=== PATIENT | male | born 1930 | race Caucasian/White ===

== ENCOUNTER 2017-03-21 13:29 | Emergency (ER) | payer MEDICARE, OTHER ==
[2017-03-21 14:58] LABS: CHLORIDE,CL 103 mmol/L (98-107); SODIUM,NA 139 mmol/L (136-145)
[2017-03-21] MEDS ORDERED: cefTRIAXone 1 GM Vial IM ONE (15:31)
--- NOTE | 2017-03-21 15:37 | EDM.PDOC ---
ED HPI GENERAL MEDICAL PROBLEM - General Chief Complaint: General Stated Complaint: htn Time Seen by Provider: 03/21/17 13:44 Source of Information: Reports: Family, Other (Assisted living facility) History Limitations: Reports: Altered Mental Status (dementia) - History of Present Illness INITIAL COMMENTS - FREE TEXT/NARRATIVE: Patient sent here from the [facility] after they noticed him shaking more. When they took his vital signs his pulse was 137, O2 sats reportedly in high 70s on room air, and systolic BP elevated to 190. EMS called to bring patient to ER for evaluation. EMS notes overall normal vital signs, including BP and O2 sats once patient in ambulance. Patient was without complaint when asked. He continued to have stable vital signs once in the ER. Son came to ER. Stated that he spend part of morning with the patient and also walked around the [facility] with him without incident. He feels that his father is acting normally. No reported signs of illness or problems per son. Vesicare added to medication regimen around March 10. Otherwise no recent med changes. - Related Data Allergies Allergy/AdvReac Type Severity Reaction Status Date / Time No Known Allergies Allergy Verified 03/21/17 13:30 Home Meds: Home Meds Donepezil HCl [Aricept] 10 mg PO DAILY 03/21/17 [History] Doxycycline [Vibramycin] 100 mg PO Q12HR #20 cap 03/21/17 [Rx] Levothyroxine [Synthroid] 88 mcg PO ACBREAKFAST 03/21/17 [History] Meclizine [Antivert] 12.5 mg PO DAILY 03/21/17 [History] Omeprazole 20 mg PO DAILY 03/21/17 [History] Solifenacin [Vesicare] 5 mg PO DAILY 03/21/17 [History] Past Medical History Gastrointestinal History: Reports: GERD Neurological History: Reports: Alzheimers Disease Endocrine/Metabolic History: Reports: Hypothyroidism Social & Family History - Tobacco Use Smoking Status *Q: Never Smoker Second Hand Smoke Exposure: No - Caffeine Use Caffeine Use: Reports: None - Recreational Drug Use Recreational Drug Use: No ED ROS GENERAL - Review of Systems Review Of Systems: Unable To Obtain ED EXAM, GENERAL - Physical Exam Exam: See Below Exam Limited By: Altered Mental Status (has hard time following directions at times.) General Appearance: Alert, WD/WN, No Apparent Distress Eye Exam: Bilateral Eye: EOMI, PERRL Ears: Normal External Exam, Normal Canal Nose: Normal Inspection. No: Nasal Swelling, Nasal Drainage Throat/Mouth: Normal Inspection, Normal Lips, Normal Voice, No Airway Compromise Head: Atraumatic, Normocephalic Neck: Normal Inspection, Supple, Non-Tender, Full Range of Motion. No: Lymphadenopathy (L), Lymphadenopathy (R) Respiratory/Chest: No Respiratory Distress, Lungs Clear, Normal Breath Sounds, No Accessory Muscle Use, Chest Non-Tender, Other (poor inspiratory effort when requested to take deep breath) Cardiovascular: Normal Peripheral Pulses, Regular Rate, Rhythm, No Edema, No Murmur Peripheral Pulses: 2+: Radial (L), Radial (R) GI/Abdominal: Normal Bowel Sounds, Soft, Non-Tender, No Distention (Male) Exam: Deferred Rectal (Males) Exam: Deferred Back Exam: Normal Inspection Extremities: Normal Inspection, Normal Range of Motion, Non-Tender, No Pedal Edema, Normal Capillary Refill Neurological: Alert, Other (no gross neuro deficits noted, equal strength bilaterally. Confused, mildly agitated at times, usually cooperative. ) Psychiatric: Normal Affect, Normal Mood Skin Exam: Warm, Dry, Normal Color EKG INTERPRETATION EKG Date: 03/21/17 Time: 13:39 Rhythm: Other (Sinus rhythm) Rate (Beats/Min): 75 [place]: Normal P-Wave: Present QRS: Normal ST-T: Normal QT: Normal Comparison: NA - No Prior EKG EKG Interpretation Comments: 1st degree AV block Course - Vital Signs Last Recorded V/S: Last Vital Signs Temp 37.2 C 03/21/17 15:28 Pulse 90 03/21/17 15:28 Resp 18 03/21/17 15:28 BP 128/89 03/21/17 15:28 Pulse Ox 99 03/21/17 15:28 - Orders/Labs/Meds Orders: Active Orders 24 hr Category Date Time Status EKG Documentation Completion [RC] ASDIRECTED Care 03/21/17 15:59 Ordered Chest 2V [CR] Stat Exams 03/21/17 14:58 Ordered EKG 12 Lead [EK] Stat Ther 03/21/17 15:58 Ordered Labs: Laboratory Tests 03/21/17 03/21/17 03/21/17 Range/Units 14:30 14:30 15:05 WBC 28.0 H (4.0-10.2) K/uL RBC 4.24 L (4.33-5.41) M/uL Hgb 12.8 L (13.1-16.8) g/dL Hct 38.0 L (39.0-49.0) % MCV 89.6 (84.0-98.0) fL MCH 30.2 (28.2-33.3) pg MCHC 33.7 (31.7-36.0) g/dL RDW 17.1 H (11.2-14.1) % Plt Count 435 H (150-350) K/uL Add Manual Diff Yes Neutrophils % (Manual) 81 Band Neutrophils % 4 Lymphocytes % (Manual) 9 Monocytes % (Manual) 1 Eosinophils % (Manual) 5 Absolute Neutrophils 23.8000 Lymphocytes # (Manual) 2.5200 Monocytes # (Manual) 0.2800 Eosinophils # (Manual) 1.4000 Sodium 139 (136-145) mmol/L Potassium 4.1 (3.5-5.1) mmol/L Chloride 103 (98-107) mmol/L Carbon Dioxide 26.0 (21.0-32.0) mmol/L BUN 21 H (7-18) mg/dL Creatinine 0.93 (0.51-1.17) mg/dL Est Cr Clr Drug Dosing 47.42 mL/min Estimated GFR (MDRD) > 60 mL/min Glucose 110 H (74-106) mg/dL Calcium 8.8 (8.5-10.1) mg/dL Total Bilirubin 0.9 (0.2-1.0) mg/dL AST 17 (15-37) U/L ALT 18 (12-78) U/L Alkaline Phosphatase 70 (46-116) IU/L Creatine Kinase 45 (26-308) U/L Creatine Kinase Index 0.4 (0.0-2.5) % CK-MB (CK-2) 0.20 (0.00-3.60) ng/mL Troponin I 0.000 (0.000-0.056) ng/mL Total Protein 7.4 (6.4-8.2) g/dL Albumin 4.3 (3.4-5.0) g/dL Specimen Type Urinblad Urine Color Yellow Urine Appearance Clear Urine pH 5.5 (5.0-9.0) Ur Specific [place] 1.025 (1.005-1.030) Urine Protein Negative (NEGATIVE) mg/dL Urine Glucose (UA) Negative (NEGATIVE) mg/dL Urine Ketones Negative (NEGATIVE) mg/dL Urine Occult Blood Negative (NEGATIVE) Urine Nitrite Negative (NEGATIVE) Urine Bilirubin Negative (NEGATIVE) Urine Urobilinogen 0.2 (0.2-1.0) E.U./dL Ur Leukocyte Esterase Negative (NEGATIVE) Urine RBC 0-5 /HPF Urine WBC 0-5 /HPF Ur Epithelial Cells Few /LPF Urine Bacteria Few (NONE TO FEW) /HPF Urine Mucus Few H (NEGATIVE) /LPF Meds: Medications Discontinued Medications Generic Name Dose Route Start Last Admin Trade Name Freq PRN Reason Stop Dose Admin Ceftriaxone Sodium 1 gm 03/21/17 15:31 03/21/17 15:43 Rocephin IM 03/21/17 15:32 1 gm ONETIME ONE Administration Lidocaine HCl Confirm 03/21/17 15:36 03/21/17 15:44 Xylocaine-Mpf 1% Administered 03/21/17 15:37 Not Given Dose 5 ml .ROUTE .STK-MED ONE Lidocaine HCl 5 ml 03/21/17 15:42 03/21/17 15:44 Xylocaine-Mpf 1% INJECT 03/21/17 15:43 5 ml ONETIME ONE Administration - Radiology Interpretation Free Text/Narrative:: Patient appears to have area suspicious for infiltrate right lower lung. - Re-Assessments/Exams Free Text/Narrative Re-Assessment/Exam: Patient denies feeling ill. Son notes that patient is a bit more agitated than usual while in ER. WBC noted to be 28,000 No fevers. Non-focal exam. UA normal. Vital signs remained stable. Chest xray did reveal an area suspicious for infiltrate right lower lung. Uncertain if this is linked to elevated WBC. Will treat patient with course of Doxy for 10 days. He will be staying with his son for the next day or two. Numerous precautions reviewed with son prior to patient's discharge. Rocephin 1gm IM also given. Recommend repeat CBC within one week and follow up with primary provider at that time for recheck. Departure - Departure Time of Disposition: 16:00 Disposition: Home, Self-Care 01 Condition: Good Clinical Impression: Pneumonia Qualifiers: Pneumonia type: due to unspecified organism Laterality: right Lung location: lower lobe of lung Qualified Code(s): J18.1 - Lobar pneumonia, unspecified organism - Discharge Information Prescriptions: Doxycycline [Vibramycin] 100 mg PO Q12HR #20 cap Referrals: Mallorie Venegas MD [Primary Care Provider] - Forms: ED Department Discharge Additional Instructions: Watch for any additional problems or worsening. Follow up as needed in ER or clinic. Recommend recheck with primary provider in one week including repeat CBC lab work. - My Orders Last 24 Hours: My Active Orders 03/21/17 14:58 Chest 2V [CR] Stat 03/21/17 15:58 EKG 12 Lead [EK] Stat 03/21/17 15:59 EKG Documentation Completion [RC] ASDIRECTED - Assessment/Plan Last 24 Hours: My Active Orders 03/21/17 14:58 Chest 2V [CR] Stat 03/21/17 15:58 EKG 12 Lead [EK] Stat 03/21/17 15:59 EKG Documentation Completion [RC] ASDIRECTED
[2017-03-21 18:45] VITALS: BP 137/56
== END 2017-03-21 16:37 | disposition home or self-care (01) ==
LOC: LL.ED 13:29
DX: J18.9 Pneumonia, unspecified organism (principal); K21.9 Gastro-esophageal reflux disease without esophagitis; E03.9 Hypothyroidism, unspecified; G30.9 Alzheimer's disease, unspecified; F02.80 Dementia in other diseases classified elsewhere, unspecified severity, without behavioral disturbance, psychotic disturbance, mood disturbance, and anxiety; Z79.899 Other long term (current) drug therapy
CPT/HCPCS: 36415; 71020; 80053; 81001; 82550; 82553; 84484; 85025; 93005; 96372; 99285; J0696; 99284

== ENCOUNTER 2017-03-29 16:09 | Inpatient (IN) | payer MEDICARE, OTHER ==
[2017-03-29] MEDS ORDERED: Albuterol/Ipratropium 3.0-0.5 MG/3 ML Neb Soln NEB PRN (16:39)
[2017-03-29] MEDS ORDERED: Acetaminophen 325 MG Tab PO PRN (16:39)
[2017-03-29] MEDS ORDERED: Sodium Chloride 0.9% 10 ML Syringe FLUSH PRN (16:39)
--- NOTE | 2017-03-29 16:59 | PCM.HP ---
H&P History of Present Illness - General Date of Service: 03/29/17 Admit Problem/Dx: Admission Diagnosis/Problem Admission Diagnosis/Problem Pneumonia Source of Information: EMS Notes Reviewed, Family History Limitations: Reports: Altered Mental Status - History of Present Illness Initial Comments - Free Text/Narative: Patient is brought in by his son for further evaluation of his current health. The patient was seen in the ER last week and diagnosed with pneumonia, WBC was elevated. Patient was started on doxy oral and seen in the clinic with improvement of his health and WBC was trending down. Yesterday the staff at the [facility] noticed the patient to more lethargic and patient had an emesis last night. Patient does have Alzheimer's , however he walks alot at the [facility] and doesn't have behavior issues. Patient has also been incontinent of urine more. Before the patient was hospitalized, family was looking into moving [place] to a skilled facility. Patient has had a slight cough, has not been running a fever. Improves with: Reports: Medication Worsens with: Reports: Immobilization Associated Symptoms: Reports: Confusion, Loss of Appetite - Related Data Allergies/Adverse Reactions: Allergies Allergy/AdvReac Type Severity Reaction Status Date / Time No Known Allergies Allergy Verified 03/21/17 13:30 Home Medications: Home Meds Donepezil HCl [Aricept] 10 mg PO DAILY 03/21/17 [History] Levothyroxine [Synthroid] 88 mcg PO ACBREAKFAST 03/21/17 [History] Meclizine [Antivert] 12.5 mg PO DAILY 03/21/17 [History] Omeprazole 20 mg PO DAILY 03/21/17 [History] Solifenacin [Vesicare] 5 mg PO DAILY 03/21/17 [History] Doxycycline [Vibramycin] 100 mg PO BID 03/29/17 [History] Past Medical History Gastrointestinal History: Reports: GERD Genitourinary History: Reports: Urinary Incontinence Neurological History: Reports: Alzheimers Disease Psychiatric History: Reports: Alzheimers Disease Endocrine/Metabolic History: Reports: Hypothyroidism Social & Family History - Family History Other Cardiac Family History: parents with heart disease - Tobacco Use Smoking Status *Q: Never Smoker Second Hand Smoke Exposure: No - Caffeine Use Caffeine Use: Reports: None - Recreational Drug Use Recreational Drug Use: No H&P Review of Systems - Review of Systems: Review Of Systems: See Below General: Reports: Weakness, Decreased Appetite HEENT: Reports: Sinus Congestion Pulmonary: Reports: Cough Cardiovascular: Reports: No Symptoms Gastrointestinal: Reports: Decreased Appetite Genitourinary: Reports: Incontinence Musculoskeletal: Reports: No Symptoms Skin: Reports: No Symptoms Psychiatric: Reports: Confusion Neurological: Reports: Confusion Exam - Exam Exam: See Below - Vital Signs Weight: 125 lb - Exam Quality Assessment: DVT Prophylaxis General: Alert HEENT: EOMI, Hearing Intact, Mucosa Moist & [place], Nares Patent, Normal Nasal Septum, Posterior Pharynx Clear, Pupils Equal, Pupils Reactive Neck: Supple, Trachea Midline Lungs: Normal Respiratory Effort, Decreased Breath Sounds, Rhonchi Cardiovascular: Regular Rate, Regular Rhythm GI/Abdominal Exam: Normal Bowel Sounds, Soft, Non-Tender, No Organomegaly, No Distention, No Abnormal Bruit, No Mass Back Exam: Normal Inspection, Full Range of Motion Extremities: Normal Inspection, No Pedal Edema, Normal Capillary Refill Peripheral Pulses: 1+: Dorsalis Pedis (L), Dorsalis Pedis (R) Skin: Warm, Dry, Intact Neurological: Reflexes Equal Bilateral, Strength Equal Bilateral, Normal Speech (shuffling with ambulation) Neuro Extensive - Mental Status: Normal Mood/Affect, Disorientation to Place, Disorientation to Time Neuro Extensive - Motor, Sensory, Reflexes: CN II-XII Intact Psychiatric: Alert *Q Meaningful Use (ADM) - VTE *Q VTE Criteria *Q: - Stroke *Q Stroke Criteria *Q: - AMI *Q AMI Criteria *Q: - Problem List (1) Pneumonia SNOMED Code(s): 929287067 ICD Code: J18.9 - PNEUMONIA, UNSPECIFIED ORGANISM Status: Acute Current Visit: No Qualifiers: Pneumonia type: aspiration pneumonia Laterality: right Lung location: unspecified part of lung Qualified Code(s): J18.1 - Lobar pneumonia, unspecified organism (2) Alzheimer's dementia without behavioral disturbance SNOMED Code(s): 32892398 ICD Code: G30.9 - ALZHEIMER'S DISEASE, UNSPECIFIED; F02.80 - DEMENTIA IN OTH DISEASES CLASSD ELSWHR W/O BEHAVRL DISTURB Status: Acute Current Visit: Yes Qualifiers: Alzheimer's disease onset: unspecified onset Qualified Code(s): G30.9 - Alzheimer's disease, unspecified; F02.80 - Dementia in other diseases classified elsewhere without behavioral disturbance (3) Hypothyroidism SNOMED Code(s): 14877146 ICD Code: E03.9 - HYPOTHYROIDISM, UNSPECIFIED Status: Acute Current Visit : Yes Qualifiers: Hypothyroidism type: unspecified Qualified Code(s): E03.9 - Hypothyroidism , unspecified Problem List Initiated/Reviewed/Updated: Yes Orders Last 24hrs: Active Orders 24 hr Category Date Time Status Patient Status [ADT] Routine ADT 03/29/17 16:39 Ordered Ambulate [RC] ASDIRECTED Care 03/29/17 16:39 Ordered Antiembolic Devices [RC] PER UNIT ROUTINE Care 03/29/17 16:46 Ordered Intake and Output [RC] QSHIFT Care 03/29/17 16:45 Ordered May Shower [RC] ASDIRECTED Care 03/29/17 16:39 Ordered Oxygen Therapy [RC] PRN Care 03/29/17 16:39 Ordered Oxygen Therapy [RC] PRN Care 03/29/17 16:39 Ordered Peripheral IV Care [RC] . DIRECTED Care 03/29/17 16:42 Ordered Pneumonia Education [RC] Click To Edit Care 03/29/17 16:39 Ordered RT Aerosol Therapy [RC] ASDIRECTED Care 03/29/17 16:42 Ordered RT Incentive Spirometry [RC] Q4HWA Care 03/29/17 16:39 Ordered Up With Assistance [RC] ASDIRECTED Care 03/29/17 16:39 Ordered VTE/DVT Education [RC] PER UNIT ROUTINE Care 03/29/17 16:39 Ordered Vital Signs [RC] Q4H Care 03/29/17 16:39 Ordered Consult to Case Management [CONS] Routine Cons 03/29/17 16:39 Ordered OT Evaluation and Treatment [CONS] Routine Cons 03/29/17 16:39 Ordered PT Evaluation and Treatment [CONS] Routine Cons 03/29/17 16:39 Ordered CUSTOMER SPECIALIST Evaluation and Treatment [CONS] Routine Cons 03/29/17 16:39 Ordered Regular Diet [DIET] Diet 03/29/17 Dinner Ordered Chest 2V [CR] Routine Exams 03/29/17 16:00 Taken C-REACTIVE PROTEIN [CHEM] DAILY Lab 03/30/17 05:11 Ordered C-REACTIVE PROTEIN [CHEM] DAILY Lab 03/31/17 05:11 Ordered C-REACTIVE PROTEIN [CHEM] DAILY Lab 04/01/17 05:11 Ordered CBC WITH AUTO DIFF [HEME] DAILY Lab 03/30/17 05:11 Ordered CBC WITH AUTO DIFF [HEME] DAILY Lab 03/31/17 05:11 Ordered CBC WITH AUTO DIFF [HEME] DAILY Lab 04/01/17 05:11 Ordered COMPREHENSIVE METABOLIC PN,CMP [CHEM] DAILY Lab 03/30/17 05:11 Ordered COMPREHENSIVE METABOLIC PN,CMP [CHEM] DAILY Lab 03/31/17 05:11 Ordered COMPREHENSIVE METABOLIC PN,CMP [CHEM] DAILY Lab 04/01/17 05:11 Ordered CULTURE BLOOD [BC] Stat Lab 03/29/17 16:42 Ordered CULTURE BLOOD [BC] Stat Lab 03/29/17 16:42 Ordered CULTURE SPUTUM + SMEAR [RM] Routine Lab 03/29/17 16:39 Uncollected CULTURE URINE [RM] Stat Lab 03/29/17 16:39 Uncollected UA W/MICROSCOPIC [URIN] Routine Lab 03/29/17 16:39 Uncollected Acetaminophen [Tylenol] Med 03/29/17 16:39 Ordered 650 mg PO Q4H PRN Albuterol/Ipratropium [DuoNeb 3.0-0.5 MG/3 ML] Med 03/29/17 16:39 Ordered 3 ml NEB Q4H PRN Albuterol/Ipratropium [DuoNeb 3.0-0.5 MG/3 ML] Med 03/29/17 20:00 Ordered 3 ml NEB QID Piperacillin/Tazobactam [Zosyn] 4.5 gm Med 03/29/17 16:45 Ordered Sodium Chloride 0.9% [Normal Saline] 100 ml IV Q6H Sodium Chloride 0.9% [Saline Flush] Med 03/29/17 16:39 Ordered 10 ml FLUSH ASDIRECTED PRN Sodium Chloride 0.9% [Saline Flush] Med 03/29/17 16:39 Ordered 10 ml FLUSH ASDIRECTED PRN metroNIDAZOLE/Normal Saline [Flagyl 500 MG in NS 100 ML Med 03/29/17 17:00 Ordered ] 500 mg Premix Bag 1 bag IV Q8H Antiembolic Hose [OM.PC] Per Unit Routine Oth 03/29/17 16:45 Ordered Blood Culture x2 Reflex Set [OM.PC] Stat Oth 03/29/17 16:39 Ordered Blood Culture x2 Reflex Set [OM.PC] Stat Oth 03/29/17 16:39 Ordered Peripheral IV Insertion Adult [OM.PC] Routine Oth 03/29/17 16:39 Ordered Resuscitation Status Routine Resus Stat 03/29/17 16:39 Ordered Medication Orders Acetaminophen (Tylenol) 650 mg PO Q4H PRN PRN Reason: Pain (Mild 1-3)/fever Albuterol/Ipratropium (Duoneb 3.0-0.5 Mg/3 Ml) 3 ml NEB Q4H PRN PRN Reason: Shortness Of Breath/wheezing Albuterol/Ipratropium (Duoneb 3.0-0.5 Mg/3 Ml) 3 ml NEB QID LILIA Piperacillin Sod/Tazobactam (Sod 4.5 gm/ Sodium Chloride) 100 mls @ 200 mls/hr IV Q6H LILIA Metronidazole 500 mg/ Premix 100 mls @ 100 mls/hr IV Q8H LILIA Sodium Chloride (Saline Flush) 10 ml FLUSH ASDIRECTED PRN PRN Reason: Keep Vein Open Sodium Chloride (Saline Flush) 10 ml FLUSH ASDIRECTED PRN PRN Reason: Keep Vein Open Assessment/Plan Comment:: 03/29/2017 Patient was admitted to the services of Dr Charlotte Garcia. started on IV Zosyn and Flagyl. PT/OT consulted and speech consulted due to Alzheimers and aspiration pneumonia. Ordered urine test and repeat labs in the morning. Started Duoneb and blood cultures ordered. Patient qualifies for three day hospital stay due to recent visit with ER and outpatient treatment on oral antibiotics. Most likely will need skilled care after the inpatient stay due to decline in Alzheimers and now pneumonia. Patient's son is aware of this and agrees to the plan of care. Patient is DNR. Kathie Toth,SUPA
[2017-03-29] MEDS: metroNIDAZOLE/Normal Saline 500 MG in Premix Bag 1 BAG IV SCH (17:47)
[2017-03-29] MEDS: Piperacillin/Tazobactam 4.5 GM in Sodium Chloride 0.9% 100 ML IV SCH ×2 (19:08→23:53)
[2017-03-29] MEDS: Sodium Chloride 0.9% 10 ML Syringe FLUSH PRN (19:09)
[2017-03-29] MEDS: Albuterol/Ipratropium 3.0-0.5 MG/3 ML Neb Soln NEB SCH (20:03)
[2017-03-30] MEDS: metroNIDAZOLE/Normal Saline 500 MG in Premix Bag 1 BAG IV SCH ×3 (01:06→16:24)
[2017-03-30] MEDS: Sodium Chloride 0.9% 10 ML Syringe FLUSH PRN ×6 (01:07→23:29)
[2017-03-30] MEDS: Piperacillin/Tazobactam 4.5 GM in Sodium Chloride 0.9% 100 ML IV SCH ×2 (04:30→11:14)
[2017-03-30] MEDS: Meclizine 25 MG Tab PO SCH (07:21)
[2017-03-30] MEDS: Trospium 20 MG Tab PO SCH ×2 (07:21→18:49)
[2017-03-30] MEDS: Levothyroxine 88 MCG Tab PO SCH (07:21)
[2017-03-30] MEDS: Omeprazole 20 MG Cap.CR PO SCH (07:23)
[2017-03-30] MEDS: Donepezil 10 MG Tab PO SCH (07:23)
[2017-03-30] MEDS: Albuterol/Ipratropium 3.0-0.5 MG/3 ML Neb Soln NEB SCH ×4 (07:24→19:46)
[2017-03-30 07:39] LABS: CHLORIDE,CL 107 mmol/L (98-107); SODIUM,NA 140 mmol/L (136-145)
[2017-03-30] MEDS: Sodium Chloride 0.9% 10 ML Syringe FLUSH SCH ×2 (08:45→19:45)
--- NOTE | 2017-03-30 15:03 | PCM.PN ---
- General Info Date of Service: 03/30/17 Admission Dx/Problem (Free Text): Admission Diagnosis/Problem Admission Diagnosis/Problem Pneumonia Functional Status: Reports: Pain Controlled - Review of Systems General: Reports: No Symptoms HEENT: Reports: No Symptoms Pulmonary: Reports: No Symptoms Cardiovascular: Reports: No Symptoms Gastrointestinal: Reports: No Symptoms Genitourinary: Reports: No Symptoms Musculoskeletal: Reports: No Symptoms Skin: Reports: No Symptoms Neurological: Reports: No Symptoms Psychiatric: Reports: No Symptoms - Patient Data Vitals - Most Recent: Last Vital Signs Temp 98.5 F 03/29/17 20:00 Pulse 57 L 03/30/17 12:00 Resp 18 03/30/17 12:00 BP 124/84 03/30/17 12:00 Pulse Ox 100 03/30/17 12:00 Weight - Most Recent: 129 lb 3.2 oz I&O - Last 24 Hours: Intake & Output 03/29/17 03/30/17 03/30/17 22:59 06:59 14:59 Intake Total 550 390 920 Output Total 625 Balance 550 390 295 Lab Results Last 24 Hours: Laboratory Results - last 24 hr 03/29/17 03/30/17 03/30/17 Range/Units 18:00 07:10 07:10 WBC 14.9 H (4.0-10.2) K/uL RBC 3.86 L (4.33-5.41) M/uL Hgb 11.5 L (13.1-16.8) g/dL Hct 34.5 L (39.0-49.0) % MCV 89.4 (84.0-98.0) fL MCH 29.8 (28.2-33.3) pg MCHC 33.3 (31.7-36.0) g/dL RDW 16.9 H (11.2-14.1) % Plt Count 449 H (150-350) K/uL Neut % (Auto) 73.9 (45.0-80.0) % Lymph % (Auto) 14.0 (10.0-50.0) % [place] % (Auto) 7.9 (2.0-14.0) % Eos % (Auto) 2.8 (0.0-5.0) % Baso % (Auto) 1.4 (0.0-2.0) % Neut # (Auto) 10.98 H (1.40-7.00) K/uL Lymph # (Auto) 2.08 (0.50-3.50) K/uL [place] # (Auto) 1.18 H (0.00-1.00) K/uL Eos # (Auto) 0.42 (0.00-0.50) K/uL Baso # (Auto) 0.21 H (0.00-0.20) K/uL Sodium 140 (136-145) mmol/L Potassium 4.0 (3.5-5.1) mmol/L Chloride 107 (98-107) mmol/L Carbon Dioxide 26.0 (21.0-32.0) mmol/L BUN 20 H (7-18) mg/dL Creatinine 0.97 (0.51-1.17) mg/dL Est Cr Clr Drug Dosing 46.99 mL/min Estimated GFR (MDRD) > 60 mL/min Glucose 97 (74-106) mg/dL Calcium 8.6 (8.5-10.1) mg/dL Total Bilirubin 1.2 H (0.2-1.0) mg/dL AST 14 L (15-37) U/L ALT 17 (12-78) U/L Alkaline Phosphatase 56 (46-116) IU/L C-Reactive Protein 4.7 H (<=0.9) mg/dL Total Protein 6.5 (6.4-8.2) g/dL Albumin 3.4 (3.4-5.0) g/dL Specimen Type Urinblad Urine Color Yellow Urine Appearance Clear Urine pH 7.0 (5.0-9.0) Ur Specific [place] 1.015 (1.005-1.030) Urine Protein Negative (NEGATIVE) mg/dL Urine Glucose (UA) Negative (NEGATIVE) mg/dL Urine Ketones Negative (NEGATIVE) mg/dL Urine Occult Blood Negative (NEGATIVE) Urine Nitrite Negative (NEGATIVE) Urine Bilirubin Negative (NEGATIVE) Urine Urobilinogen 0.2 (0.2-1.0) E.U./dL Ur Leukocyte Esterase Negative (NEGATIVE) Urine RBC 0-5 /HPF Urine WBC 0-5 /HPF Ur Epithelial Cells Rare /LPF Urine Bacteria Occasional (NONE TO FEW) /HPF Med Orders - Current: Current Medications Acetaminophen (Tylenol) 650 mg PO Q4H PRN PRN Reason: Pain (Mild 1-3)/fever Albuterol/Ipratropium (Duoneb 3.0-0.5 Mg/3 Ml) 3 ml NEB Q4H PRN PRN Reason: Shortness Of Breath/wheezing Albuterol/Ipratropium (Duoneb 3.0-0.5 Mg/3 Ml) 3 ml NEB QIDRT [facility] Last Admin: 03/30/17 11:48 Dose: 3 ml Donepezil HCl (Aricept) 10 mg PO DAILY [facility] Last Admin: 03/30/17 07:23 Dose: 10 mg Metronidazole 500 mg/ Premix 100 mls @ 100 mls/hr IV Q8H [facility] Last Admin: 03/30/17 08:24 Dose: 100 mls/hr Piperacillin Sod/Tazobactam (Sod 3.375 gm/ Sodium Chloride) 100 mls @ 200 mls/ hr IV Q6H [facility] Levothyroxine Sodium (Synthroid) 88 mcg PO ACBREAKFAST [facility] Last Admin: 03/30/17 07:21 Dose: 88 mcg Meclizine HCl (Antivert) 12.5 mg PO DAILY [facility] Last Admin: 03/30/17 07:21 Dose: 12.5 mg Omeprazole (Omeprazole) 20 mg PO DAILY [facility] Last Admin: 03/30/17 07:23 Dose: 20 mg Sodium Chloride (Saline Flush) 10 ml FLUSH ASDIRECTED PRN PRN Reason: Keep Vein Open Last Admin: 03/30/17 04:30 Dose: 10 ml Sodium Chloride (Saline Flush) 10 ml FLUSH Q12HR [facility] Last Admin: 03/30/17 08:45 Dose: 10 ml Trospium (Sanctura) 20 mg PO BID [facility] Last Admin: 03/30/17 07:21 Dose: 20 mg Discontinued Medications Piperacillin Sod/Tazobactam (Sod 4.5 gm/ Sodium Chloride) 100 mls @ 200 mls/hr IV Q6H [facility] Last Admin: 03/30/17 11:14 Dose: 200 mls/hr Sodium Chloride (Saline Flush) 10 ml FLUSH ASDIRECTED PRN PRN Reason: Keep Vein Open - Exam General: Alert, Cooperative, No Acute Distress HEENT: Mucous Membr. Moist/[place] Neck: Trachea Midline, No JVD Lungs: Clear to Auscultation, Normal Respiratory Effort Cardiovascular: Irregular Rhythm GI/Abdominal Exam: Normal Bowel Sounds, Soft, Non-Tender, No Distention (Male) Exam: Deferred Back Exam: Normal Inspection Extremities: Normal Inspection Skin: Warm, Dry, Intact Neurological: No New Focal Deficit Psy/Mental Status: Alert, Normal Affect, Normal Mood, Other (memory deficit consistent with dementia) - Problem List & Annotations (1) Alzheimer's dementia without behavioral disturbance SNOMED Code(s): 97873332 Code(s): G30.9 - ALZHEIMER'S DISEASE, UNSPECIFIED; F02.80 - DEMENTIA IN OTH DISEASES CLASSD ELSWHR W/O BEHAVRL DISTURB Status: Acute Priority: Medium Current Visit: Yes Qualifiers: Alzheimer's disease onset: unspecified onset Qualified Code(s): G30.9 - Alzheimer's disease, unspecified; F02.80 - Dementia in other diseases classified elsewhere without behavioral disturbance (2) Hypothyroidism SNOMED Code(s): 81116930 Code(s): E03.9 - HYPOTHYROIDISM, UNSPECIFIED Status: Acute Priority: Low Current Visit: Yes Qualifiers: Hypothyroidism type: unspecified Qualified Code(s): E03.9 - Hypothyroidism , unspecified (3) Pneumonia SNOMED Code(s): 945821829 Code(s): J18.9 - PNEUMONIA, UNSPECIFIED ORGANISM Status: Acute Priority: High Current Visit: No Qualifiers: Pneumonia type: aspiration pneumonia Laterality: right Lung location: unspecified part of lung Qualified Code(s): J18.1 - Lobar pneumonia, unspecified organism - Problem List Review Problem List Initiated/Reviewed/Updated: Yes - My Orders Last 24 Hours: My Active Orders 03/30/17 08:00 Sodium Chloride 0.9% [Saline Flush] 10 ml FLUSH Q12HR 03/30/17 17:00 Piperacillin/Tazobactam [Zosyn] 3.375 gm Sodium Chloride 0.9% [Normal Saline] 100 ml IV Q6H - Plan Plan:: 03/29/2017 Patient was admitted to the services of Dr Charlotte Garcia. started on IV Zosyn and Flagyl. PT/OT consulted and speech consulted due to Alzheimers and aspiration pneumonia. Ordered urine test and repeat labs in the morning. Started Duoneb and blood cultures ordered. Patient qualifies for three day hospital stay due to recent visit with ER and outpatient treatment on oral antibiotics. Most likely will need skilled care after the inpatient stay due to decline in Alzheimers and now pneumonia. Patient's son is aware of this and agrees to the plan of care. Patient is DNR. Kathie Toth,SUPA 03/30/17 Sheets Radha ALONZO Feeling better. Nurses report "sun downing behavior" last night. Continue IV antibiotics and respiratory treatments.
[2017-03-30] MEDS: Piperacillin/Tazobactam 3.375 GM in Sodium Chloride 0.9% 100 ML IV SCH ×2 (18:49→23:25)
[2017-03-31] MEDS: metroNIDAZOLE/Normal Saline 500 MG in Premix Bag 1 BAG IV SCH ×3 (00:08→17:58)
[2017-03-31] MEDS: Sodium Chloride 0.9% 10 ML Syringe FLUSH PRN ×2 (06:00→10:41)
[2017-03-31] MEDS: Piperacillin/Tazobactam 3.375 GM in Sodium Chloride 0.9% 100 ML IV SCH ×4 (06:00→22:27)
[2017-03-31 07:41] LABS: CHLORIDE,CL 107 mmol/L (98-107); SODIUM,NA 140 mmol/L (136-145)
[2017-03-31] MEDS: Meclizine 25 MG Tab PO SCH (08:22)
[2017-03-31] MEDS: Trospium 20 MG Tab PO SCH ×2 (08:24→17:22)
[2017-03-31] MEDS: Omeprazole 20 MG Cap.CR PO SCH (08:24)
[2017-03-31] MEDS: Levothyroxine 88 MCG Tab PO SCH (08:24)
[2017-03-31] MEDS: Donepezil 10 MG Tab PO SCH (08:25)
[2017-03-31] MEDS: Sodium Chloride 0.9% 10 ML Syringe FLUSH SCH ×2 (08:27→19:27)
[2017-03-31] MEDS: Albuterol/Ipratropium 3.0-0.5 MG/3 ML Neb Soln NEB SCH ×4 (08:27→19:27)
--- NOTE | 2017-03-31 16:28 | PCM.PN ---
- General Info Date of Service: 03/31/17 Admission Dx/Problem (Free Text): Admission Diagnosis/Problem Admission Diagnosis/Problem Pneumonia Functional Status: Reports: Pain Controlled - Review of Systems General: Reports: No Symptoms HEENT: Reports: No Symptoms Pulmonary: Reports: No Symptoms Cardiovascular: Reports: No Symptoms Gastrointestinal: Reports: No Symptoms Genitourinary: Reports: No Symptoms Musculoskeletal: Reports: No Symptoms Skin: Reports: No Symptoms Neurological: Reports: No Symptoms Psychiatric: Reports: Confusion - Patient Data Vitals - Most Recent: Last Vital Signs Temp 98.3 F 03/31/17 11:43 Pulse 71 03/31/17 11:43 Resp 18 03/31/17 08:20 BP 105/52 L 03/31/17 11:43 Pulse Ox 98 03/31/17 11:43 Weight - Most Recent: 127 lb I&O - Last 24 Hours: Intake & Output 03/31/17 03/31/17 03/31/17 06:59 14:59 22:59 Intake Total 1700 Output Total 600 Balance 1100 Lab Results Last 24 Hours: Laboratory Results - last 24 hr 03/31/17 03/31/17 Range/Units 06:55 06:55 WBC 14.7 H (4.0-10.2) K/uL RBC 3.92 L (4.33-5.41) M/uL Hgb 11.7 L (13.1-16.8) g/dL Hct 34.9 L (39.0-49.0) % MCV 89.0 (84.0-98.0) fL MCH 29.8 (28.2-33.3) pg MCHC 33.5 (31.7-36.0) g/dL RDW 17.0 H (11.2-14.1) % Plt Count 506 H (150-350) K/uL Add Manual Diff Yes Neutrophils % (Manual) 74 Lymphocytes % (Manual) 20 Monocytes % (Manual) 2 Eosinophils % (Manual) 4 Absolute Neutrophils 10.8780 Lymphocytes # (Manual) 2.9400 Monocytes # (Manual) 0.2940 Eosinophils # (Manual) 0.5880 Sodium 140 (136-145) mmol/L Potassium 4.3 (3.5-5.1) mmol/L Chloride 107 (98-107) mmol/L Carbon Dioxide 25.5 (21.0-32.0) mmol/L BUN 18 (7-18) mg/dL Creatinine 0.95 (0.51-1.17) mg/dL Est Cr Clr Drug Dosing 47.16 mL/min Estimated GFR (MDRD) > 60 mL/min Glucose 94 (74-106) mg/dL Calcium 8.7 (8.5-10.1) mg/dL Total Bilirubin 0.7 (0.2-1.0) mg/dL AST 16 (15-37) U/L ALT 19 (12-78) U/L Alkaline Phosphatase 52 (46-116) IU/L C-Reactive Protein 2.5 H (<=0.9) mg/dL Total Protein 6.6 (6.4-8.2) g/dL Albumin 3.5 (3.4-5.0) g/dL Anshu Results Last 24 Hours: Microbiology 03/30/17 04:00 Urine Culture - Preliminary Urine, Bladder No Growth 03/29/17 17:36 Aerobic Blood Culture - Preliminary Blood - Venous - Lab Draw NO GROWTH AFTER 1 DAY Anaerobic Blood Culture - Preliminary NO GROWTH AFTER 1 DAY 03/29/17 17:05 Aerobic Blood Culture - Preliminary Blood - Venous NO GROWTH AFTER 1 DAY Anaerobic Blood Culture - Preliminary NO GROWTH AFTER 1 DAY Med Orders - Current: Current Medications Acetaminophen (Tylenol) 650 mg PO Q4H PRN PRN Reason: Pain (Mild 1-3)/fever Albuterol/Ipratropium (Duoneb 3.0-0.5 Mg/3 Ml) 3 ml NEB Q4H PRN PRN Reason: Shortness Of Breath/wheezing Albuterol/Ipratropium (Duoneb 3.0-0.5 Mg/3 Ml) 3 ml NEB QIDRT [facility] Last Admin: 03/31/17 11:45 Dose: 3 ml Donepezil HCl (Aricept) 10 mg PO DAILY [facility] Last Admin: 03/31/17 08:25 Dose: 10 mg Metronidazole 500 mg/ Premix 100 mls @ 100 mls/hr IV Q8H [facility] Last Admin: 03/31/17 08:21 Dose: 100 mls/hr Piperacillin Sod/Tazobactam (Sod 3.375 gm/ Sodium Chloride) 100 mls @ 200 mls/ hr IV Q6H [facility] Last Admin: 03/31/17 10:40 Dose: 200 mls/hr Levothyroxine Sodium (Synthroid) 88 mcg PO ACBREAKFAST [facility] Last Admin: 03/31/17 08:24 Dose: 88 mcg Meclizine HCl (Antivert) 12.5 mg PO DAILY [facility] Last Admin: 03/31/17 08:22 Dose: 12.5 mg Omeprazole (Omeprazole) 20 mg PO DAILY [facility] Last Admin: 03/31/17 08:24 Dose: 20 mg Sodium Chloride (Saline Flush) 10 ml FLUSH ASDIRECTED PRN PRN Reason: Keep Vein Open Last Admin: 03/31/17 10:41 Dose: 10 ml Sodium Chloride (Saline Flush) 10 ml FLUSH Q12HR [facility] Last Admin: 03/31/17 08:27 Dose: 10 ml Trospium (Sanctura) 20 mg PO BID [facility] Last Admin: 03/31/17 08:24 Dose: 20 mg Discontinued Medications Piperacillin Sod/Tazobactam (Sod 4.5 gm/ Sodium Chloride) 100 mls @ 200 mls/hr IV Q6H [facility] Last Admin: 03/30/17 11:14 Dose: 200 mls/hr Sodium Chloride (Saline Flush) 10 ml FLUSH ASDIRECTED PRN PRN Reason: Keep Vein Open - Exam General: Alert, Cooperative, No Acute Distress HEENT: Pupils Equal, Pupils Reactive, Mucous Membr. Moist/[place] Neck: Trachea Midline, No JVD Lungs: Clear to Auscultation, Normal Respiratory Effort Cardiovascular: Irregular Rhythm GI/Abdominal Exam: Normal Bowel Sounds, Soft, Non-Tender, No Distention (Male) Exam: Deferred Back Exam: Normal Inspection Extremities: Normal Inspection, No Pedal Edema Skin: Warm, Dry, Intact Neurological: No New Focal Deficit Psy/Mental Status: Alert, Normal Affect, Normal Mood, Anxious (at times) - Problem List & Annotations (1) Alzheimer's dementia without behavioral disturbance SNOMED Code(s): 46478124 Code(s): G30.9 - ALZHEIMER'S DISEASE, UNSPECIFIED; F02.80 - DEMENTIA IN OTH DISEASES CLASSD ELSWHR W/O BEHAVRL DISTURB Status: Acute Priority: Medium Current Visit: Yes Qualifiers: Alzheimer's disease onset: unspecified onset Qualified Code(s): G30.9 - Alzheimer's disease, unspecified; F02.80 - Dementia in other diseases classified elsewhere without behavioral disturbance (2) Hypothyroidism SNOMED Code(s): 52553668 Code(s): E03.9 - HYPOTHYROIDISM, UNSPECIFIED Status: Acute Priority: Low Current Visit: Yes Qualifiers: Hypothyroidism type: unspecified Qualified Code(s): E03.9 - Hypothyroidism , unspecified (3) Pneumonia SNOMED Code(s): 887994304 Code(s): J18.9 - PNEUMONIA, UNSPECIFIED ORGANISM Status: Acute Priority: High Current Visit: No Qualifiers: Pneumonia type: aspiration pneumonia Laterality: right Lung location: unspecified part of lung Qualified Code(s): J18.1 - Lobar pneumonia, unspecified organism (4) COPD exacerbation SNOMED Code(s): 968746142, 175744583 Code(s): J44.1 - CHRONIC OBSTRUCTIVE PULMONARY DISEASE W (ACUTE) EXACERBATION Status: Acute Priority: High Current Visit: Yes - Problem List Review Problem List Initiated/Reviewed/Updated: Yes - My Orders Last 24 Hours: My Active Orders 03/30/17 17:00 Piperacillin/Tazobactam [Zosyn] 3.375 gm Sodium Chloride 0.9% [Normal Saline] 100 ml IV Q6H 04/01/17 05:11 BLOOD SMEARS TO PATHOLOGIST [REF] Routine FERRITIN [CHEM] Routine FOLATE [REF] Routine IRON/TIBC [CHEM] Routine VITAMIN B12 [CHEM] Routine - Plan Plan:: 03/29/2017 Patient was admitted to the services of Dr Charlotte Garcia. started on IV Zosyn and Flagyl. PT/OT consulted and speech consulted due to Alzheimers and aspiration pneumonia. Ordered urine test and repeat labs in the morning. Started Duoneb and blood cultures ordered. Patient qualifies for three day hospital stay due to recent visit with ER and outpatient treatment on oral antibiotics. Most likely will need skilled care after the inpatient stay due to decline in Alzheimers and now pneumonia. Patient's son is aware of this and agrees to the plan of care. Patient is DNR. Kathie Toth CNP 03/30/17 Charlotte Garcia MD Feeling better. Nurses report "sun downing behavior" last night. Continue IV antibiotics and respiratory treatments. 03/31/17 He says he feels good. Continue medical regiment. Leukocytosis, anemia, thrombosis work up. Discharge planning continues. He will need skilled care after discharge.
[2017-04-01] MEDS: metroNIDAZOLE/Normal Saline 500 MG in Premix Bag 1 BAG IV SCH ×3 (00:08→16:00)
[2017-04-01] MEDS: Sodium Chloride 0.9% 10 ML Syringe FLUSH PRN ×3 (00:09→10:55)
[2017-04-01] MEDS: Piperacillin/Tazobactam 3.375 GM in Sodium Chloride 0.9% 100 ML IV SCH ×3 (04:21→17:25)
[2017-04-01] MEDS: Trospium 20 MG Tab PO SCH ×2 (08:08→17:25)
[2017-04-01] MEDS: Donepezil 10 MG Tab PO SCH (08:08)
[2017-04-01] MEDS: Meclizine 25 MG Tab PO SCH (08:08)
[2017-04-01] MEDS: Levothyroxine 88 MCG Tab PO SCH (08:08)
[2017-04-01] MEDS: Omeprazole 20 MG Cap.CR PO SCH (08:08)
[2017-04-01] MEDS: Albuterol/Ipratropium 3.0-0.5 MG/3 ML Neb Soln NEB SCH ×4 (08:08→19:09)
[2017-04-01] MEDS: Sodium Chloride 0.9% 10 ML Syringe FLUSH SCH ×2 (08:16→19:09)
[2017-04-01 08:20] LABS: CHLORIDE,CL 106 mmol/L (98-107); SODIUM,NA 140 mmol/L (136-145)
--- NOTE | 2017-04-01 16:50 | PCM.PN ---
- General Info Date of Service: 04/01/17 Admission Dx/Problem (Free Text): Admission Diagnosis/Problem Admission Diagnosis/Problem Pneumonia Functional Status: Reports: Pain Controlled - Review of Systems General: Reports: No Symptoms HEENT: Reports: No Symptoms Pulmonary: Reports: No Symptoms Cardiovascular: Reports: No Symptoms Gastrointestinal: Reports: No Symptoms Genitourinary: Reports: No Symptoms Musculoskeletal: Reports: No Symptoms Skin: Reports: No Symptoms Neurological: Reports: No Symptoms Psychiatric: Reports: No Symptoms - Patient Data Vitals - Most Recent: Last Vital Signs Temp 98.1 F 04/01/17 16:00 Pulse 75 04/01/17 16:00 Resp 16 04/01/17 11:48 BP 140/63 04/01/17 16:00 Pulse Ox 97 04/01/17 16:00 Weight - Most Recent: 130 lb 12.8 oz I&O - Last 24 Hours: Intake & Output 04/01/17 04/01/17 04/01/17 06:59 14:59 22:59 Intake Total 320 600 Output Total 1300 Balance -980 600 Lab Results Last 24 Hours: Laboratory Results - last 24 hr 04/01/17 04/01/17 04/01/17 Range/Units 07:30 07:30 07:30 WBC 12.5 H (4.0-10.2) K/uL RBC 4.02 L (4.33-5.41) M/uL Hgb 12.0 L (13.1-16.8) g/dL Hct 35.9 L (39.0-49.0) % MCV 89.3 (84.0-98.0) fL MCH 29.9 (28.2-33.3) pg MCHC 33.4 (31.7-36.0) g/dL RDW 17.1 H (11.2-14.1) % Plt Count 535 H (150-350) K/uL Neut % (Auto) 70.4 (45.0-80.0) % Lymph % (Auto) 17.1 (10.0-50.0) % [place] % (Auto) 6.4 (2.0-14.0) % Eos % (Auto) 3.9 (0.0-5.0) % Baso % (Auto) 2.2 H (0.0-2.0) % Neut # (Auto) 8.83 H (1.40-7.00) K/uL Lymph # (Auto) 2.15 (0.50-3.50) K/uL [place] # (Auto) 0.80 (0.00-1.00) K/uL Eos # (Auto) 0.49 (0.00-0.50) K/uL Baso # (Auto) 0.27 H (0.00-0.20) K/uL Sodium 140 (136-145) mmol/L Potassium 4.5 (3.5-5.1) mmol/L Chloride 106 (98-107) mmol/L Carbon Dioxide 24.6 (21.0-32.0) mmol/L BUN 14 (7-18) mg/dL Creatinine 0.94 (0.51-1.17) mg/dL Est Cr Clr Drug Dosing 49.09 mL/min Estimated GFR (MDRD) > 60 mL/min Glucose 95 (74-106) mg/dL Calcium 8.8 (8.5-10.1) mg/dL Iron 46 L (50-175) ug/dL TIBC 172 L (250-450) ug/dL % Saturation 26.28764 Ferritin 395 H (8-388) ng/mL Total Bilirubin 0.5 (0.2-1.0) mg/dL AST 18 (15-37) U/L ALT 19 (12-78) U/L Alkaline Phosphatase 48 (46-116) IU/L C-Reactive Protein 1.8 H (<=0.9) mg/dL Total Protein 6.4 (6.4-8.2) g/dL Albumin 3.4 (3.4-5.0) g/dL Vitamin B12 554 (193-986) pg/mL Folate (8.6-58.9) ng/mL 04/01/17 Range/Units 07:30 WBC (4.0-10.2) K/uL RBC (4.33-5.41) M/uL Hgb (13.1-16.8) g/dL Hct (39.0-49.0) % MCV (84.0-98.0) fL MCH (28.2-33.3) pg MCHC (31.7-36.0) g/dL RDW (11.2-14.1) % Plt Count (150-350) K/uL Neut % (Auto) (45.0-80.0) % Lymph % (Auto) (10.0-50.0) % [place] % (Auto) (2.0-14.0) % Eos % (Auto) (0.0-5.0) % Baso % (Auto) (0.0-2.0) % Neut # (Auto) (1.40-7.00) K/uL Lymph # (Auto) (0.50-3.50) K/uL [place] # (Auto) (0.00-1.00) K/uL Eos # (Auto) (0.00-0.50) K/uL Baso # (Auto) (0.00-0.20) K/uL Sodium (136-145) mmol/L Potassium (3.5-5.1) mmol/L Chloride (98-107) mmol/L Carbon Dioxide (21.0-32.0) mmol/L BUN (7-18) mg/dL Creatinine (0.51-1.17) mg/dL Est Cr Clr Drug Dosing mL/min Estimated GFR (MDRD) mL/min Glucose (74-106) mg/dL Calcium (8.5-10.1) mg/dL Iron (50-175) ug/dL TIBC (250-450) ug/dL % Saturation Ferritin (8-388) ng/mL Total Bilirubin (0.2-1.0) mg/dL AST (15-37) U/L ALT (12-78) U/L Alkaline Phosphatase (46-116) IU/L C-Reactive Protein (<=0.9) mg/dL Total Protein (6.4-8.2) g/dL Albumin (3.4-5.0) g/dL Vitamin B12 (193-986) pg/mL Folate 17.5 (8.6-58.9) ng/mL Anshu Results Last 24 Hours: Microbiology 03/30/17 04:00 Urine Culture - Final Urine, Bladder NO GROWTH AFTER 2 DAYS 03/29/17 17:36 Aerobic Blood Culture - Preliminary Blood - Venous - Lab Draw NO GROWTH AFTER 2 DAYS Anaerobic Blood Culture - Preliminary NO GROWTH AFTER 2 DAYS 03/29/17 17:05 Aerobic Blood Culture - Preliminary Blood - Venous NO GROWTH AFTER 2 DAYS Anaerobic Blood Culture - Preliminary NO GROWTH AFTER 2 DAYS Med Orders - Current: Current Medications Acetaminophen (Tylenol) 650 mg PO Q4H PRN PRN Reason: Pain (Mild 1-3)/fever Albuterol/Ipratropium (Duoneb 3.0-0.5 Mg/3 Ml) 3 ml NEB Q4H PRN PRN Reason: Shortness Of Breath/wheezing Albuterol/Ipratropium (Duoneb 3.0-0.5 Mg/3 Ml) 3 ml NEB QIDRT [facility] Last Admin: 04/01/17 16:00 Dose: 3 ml Donepezil HCl (Aricept) 10 mg PO DAILY [facility] Last Admin: 04/01/17 08:08 Dose: 10 mg Metronidazole 500 mg/ Premix 100 mls @ 100 mls/hr IV Q8H [facility] Last Admin: 04/01/17 16:00 Dose: 100 mls/hr Piperacillin Sod/Tazobactam (Sod 3.375 gm/ Sodium Chloride) 100 mls @ 200 mls/ hr IV Q6H [facility] Last Admin: 04/01/17 10:55 Dose: 200 mls/hr Levothyroxine Sodium (Synthroid) 88 mcg PO ACBREAKFAST [facility] Last Admin: 04/01/17 08:08 Dose: 88 mcg Meclizine HCl (Antivert) 12.5 mg PO DAILY [facility] Last Admin: 04/01/17 08:08 Dose: 12.5 mg Omeprazole (Omeprazole) 20 mg PO DAILY [facility] Last Admin: 04/01/17 08:08 Dose: 20 mg Sodium Chloride (Saline Flush) 10 ml FLUSH ASDIRECTED PRN PRN Reason: Keep Vein Open Last Admin: 04/01/17 10:55 Dose: 10 ml Sodium Chloride (Saline Flush) 10 ml FLUSH Q12HR [facility] Last Admin: 04/01/17 08:16 Dose: 10 ml Trospium (Sanctura) 20 mg PO BID [facility] Last Admin: 04/01/17 08:08 Dose: 20 mg Discontinued Medications Piperacillin Sod/Tazobactam (Sod 4.5 gm/ Sodium Chloride) 100 mls @ 200 mls/hr IV Q6H [facility] Last Admin: 03/30/17 11:14 Dose: 200 mls/hr Sodium Chloride (Saline Flush) 10 ml FLUSH ASDIRECTED PRN PRN Reason: Keep Vein Open - Exam General: Alert, No Acute Distress HEENT: Mucous Membr. Moist/[place] Neck: Trachea Midline, No JVD Lungs: Clear to Auscultation, Normal Respiratory Effort Cardiovascular: Regular Rate, Regular Rhythm GI/Abdominal Exam: Normal Bowel Sounds, Soft, Non-Tender, No Distention (Male) Exam: Deferred Back Exam: Normal Inspection Extremities: Normal Inspection, No Pedal Edema Skin: Warm, Dry, Intact Neurological: No New Focal Deficit Psy/Mental Status: Other (confusion) - Problem List & Annotations (1) Alzheimer's dementia without behavioral disturbance SNOMED Code(s): 16649802 Code(s): G30.9 - ALZHEIMER'S DISEASE, UNSPECIFIED; F02.80 - DEMENTIA IN OTH DISEASES CLASSD ELSWHR W/O BEHAVRL DISTURB Status: Acute Priority: Medium Current Visit: Yes Qualifiers: Alzheimer's disease onset: unspecified onset Qualified Code(s): G30.9 - Alzheimer's disease, unspecified; F02.80 - Dementia in other diseases classified elsewhere without behavioral disturbance (2) Hypothyroidism SNOMED Code(s): 22782342 Code(s): E03.9 - HYPOTHYROIDISM, UNSPECIFIED Status: Acute Priority: Low Current Visit: Yes Qualifiers: Hypothyroidism type: unspecified Qualified Code(s): E03.9 - Hypothyroidism , unspecified (3) Pneumonia SNOMED Code(s): 947735012 Code(s): J18.9 - PNEUMONIA, UNSPECIFIED ORGANISM Status: Acute Priority: High Current Visit: No Qualifiers: Pneumonia type: aspiration pneumonia Laterality: right Lung location: unspecified part of lung Qualified Code(s): J18.1 - Lobar pneumonia, unspecified organism (4) COPD exacerbation SNOMED Code(s): 055476712, 908899208 Code(s): J44.1 - CHRONIC OBSTRUCTIVE PULMONARY DISEASE W (ACUTE) EXACERBATION Status: Acute Priority: High Current Visit: Yes - Problem List Review Problem List Initiated/Reviewed/Updated: Yes - My Orders Last 24 Hours: My Active Orders 04/01/17 07:30 BLOOD SMEARS TO PATHOLOGIST [REF] Routine - Plan Plan:: 03/29/2017 Patient was admitted to the services of Dr Charlotte Garcia. started on IV Zosyn and Flagyl. PT/OT consulted and speech consulted due to Alzheimers and aspiration pneumonia. Ordered urine test and repeat labs in the morning. Started Duoneb and blood cultures ordered. Patient qualifies for three day hospital stay due to recent visit with ER and outpatient treatment on oral antibiotics. Most likely will need skilled care after the inpatient stay due to decline in Alzheimers and now pneumonia. Patient's son is aware of this and agrees to the plan of care. Patient is DNR. Kathie Toth,[employer] 03/30/17 Charlotte Garcia MD Feeling better. Nurses report "sun downing behavior" last night. Continue IV antibiotics and respiratory treatments. 03/31/17 He says he feels good. Continue medical regiment. Leukocytosis, anemia, thrombosis work up. Discharge planning continues. He will need skilled care after discharge. 04/01/17 Charlotte Garcia MD Doing okay he says. He repeats he does not smoke and he does not drink so he is good. WBC still mildly elevated. Continue inpatient treatment.
[2017-04-02] MEDS: Sodium Chloride 0.9% 10 ML Syringe FLUSH PRN ×2 (00:10→06:01)
[2017-04-02] MEDS: metroNIDAZOLE/Normal Saline 500 MG in Premix Bag 1 BAG IV SCH ×2 (00:48→08:11)
[2017-04-02] MEDS: Piperacillin/Tazobactam 3.375 GM in Sodium Chloride 0.9% 100 ML IV SCH ×3 (06:01)
[2017-04-02] MEDS: Levothyroxine 88 MCG Tab PO SCH (08:09)
[2017-04-02] MEDS: Meclizine 25 MG Tab PO SCH (08:09)
[2017-04-02] MEDS: Donepezil 10 MG Tab PO SCH (08:09)
[2017-04-02] MEDS: Omeprazole 20 MG Cap.CR PO SCH (08:10)
[2017-04-02] MEDS: Albuterol/Ipratropium 3.0-0.5 MG/3 ML Neb Soln NEB SCH (08:10)
[2017-04-02] MEDS: Sodium Chloride 0.9% 10 ML Syringe FLUSH SCH (08:10)
[2017-04-02] MEDS: Trospium 20 MG Tab PO SCH (08:10)
[2017-04-02 08:29] LABS: CHLORIDE,CL 105 mmol/L (98-107); SODIUM,NA 140 mmol/L (136-145)
[2017-04-02 08:41] VITALS: BP 133/71
--- NOTE | 2017-04-02 09:49 | PCM.DCSUM1 ---
Discharge Summary - Hospital Course Free Text/Narrative:: Patient was admitted for aspiration pneumonia. Treated with Zosyn and Flagyl. Patient has improved in strength but needing further treatment of the pneumonia with IV antibiotics. - Discharge Data Discharge Date: 04/02/18 Discharge Disposition: DC/Tfer to SNF 03 Condition: Fair - Discharge Diagnosis/Problem(s) (1) Pneumonia SNOMED Code(s): 315732108 ICD Code: J18.9 - PNEUMONIA, UNSPECIFIED ORGANISM Status: Acute Priority : High Current Visit: No Qualifiers: Pneumonia type: aspiration pneumonia Laterality: right Lung location: unspecified part of lung Qualified Code(s): J18.1 - Lobar pneumonia, unspecified organism (2) Alzheimer's dementia without behavioral disturbance SNOMED Code(s): 62111483 ICD Code: G30.9 - ALZHEIMER'S DISEASE, UNSPECIFIED; F02.80 - DEMENTIA IN OTH DISEASES CLASSD ELSWHR W/O BEHAVRL DISTURB Status: Acute Priority: Medium Current Visit: Yes Qualifiers: Alzheimer's disease onset: unspecified onset Qualified Code(s): G30.9 - Alzheimer's disease, unspecified; F02.80 - Dementia in other diseases classified elsewhere without behavioral disturbance (3) Hypothyroidism SNOMED Code(s): 27335576 ICD Code: E03.9 - HYPOTHYROIDISM, UNSPECIFIED Status: Acute Priority: Low Current Visit: Yes Qualifiers: Hypothyroidism type: unspecified Qualified Code(s): E03.9 - Hypothyroidism , unspecified - Patient Summary/Data Consults: Consultations 03/29/17 16:39 Consult to Case Management [CONS] Routine OT Evaluation and Treatment [CONS] Routine PT Evaluation and Treatment [CONS] Routine ENGINEERING CONSULTANT Evaluation and Treatment [CONS] Routine - Patient Instructions Diet: Regular Diet as Tolerated Driving: Do Not Drive Showering/Bathing: May Shower - Discharge Plan Home Medications: Home Meds Donepezil HCl [Aricept] 10 mg PO DAILY 03/21/17 [History] Levothyroxine [Synthroid] 88 mcg PO ACBREAKFAST 03/21/17 [History] Meclizine [Antivert] 12.5 mg PO DAILY 03/21/17 [History] Omeprazole 20 mg PO DAILY 03/21/17 [History] Solifenacin [Vesicare] 5 mg PO DAILY 03/21/17 [History] Doxycycline [Vibramycin] 100 mg PO BID 03/29/17 [History] Patient Handouts: Aspiration Pneumonia Referrals: Kathie Toth NP [Primary Care Provider] - - Discharge Summary/Plan Comment DC Time >30 min.: No Discharge Summary/Plan Comment: Patient will be transferred into swingbed for further IV antibiotic treatment for aspiration pneumonia. Patient failed outpatient treatment before hospitalization. WBC continues to be elevated. Will continue with current treatments and patient will probably need manager terminal senior care placement. retail tire sales manager was consulted, stating the patient qualified for swingbed with current IV antibiotics. Kathie Toth CNP - General Info Date of Service: 04/02/17 Admission Dx/Problem (Free Text: Admission Diagnosis/Problem Admission Diagnosis/Problem Pneumonia Functional Status: Reports: Tolerating Diet - Review of Systems General: Reports: Weakness HEENT: Reports: No Symptoms Pulmonary: Reports: Cough Cardiovascular: Reports: No Symptoms Gastrointestinal: Reports: No Symptoms Genitourinary: Reports: Incontinence Musculoskeletal: Reports: No Symptoms Skin: Reports: No Symptoms Neurological: Reports: Confusion Psychiatric: Reports: Confusion (Has Alzheimers) - Patient Data Vitals - Most Recent: Last Vital Signs Temp 97.9 F 04/02/17 08:00 Pulse 84 04/02/17 08:00 Resp 18 04/02/17 08:00 BP 133/71 04/02/17 08:00 Pulse Ox 99 04/02/17 08:00 Weight - Most Recent: 130 lb 12.8 oz I&O - Last 24 hours: Intake & Output 04/01/17 04/02/17 04/02/17 22:59 06:59 14:59 Intake Total 300 360 Output Total 400 Balance -100 360 Lab Results - Last 24 hrs: Laboratory Results - last 24 hr 04/02/17 04/02/17 Range/Units 08:00 08:00 WBC 13.6 H (4.0-10.2) K/uL RBC 4.49 (4.33-5.41) M/uL Hgb 13.4 (13.1-16.8) g/dL Hct 40.0 (39.0-49.0) % MCV 89.1 (84.0-98.0) fL MCH 29.8 (28.2-33.3) pg MCHC 33.5 (31.7-36.0) g/dL RDW 17.3 H (11.2-14.1) % Plt Count 399 H D (150-350) K/uL Neut % (Auto) 74.3 (45.0-80.0) % Lymph % (Auto) 13.5 (10.0-50.0) % [place] % (Auto) 6.0 (2.0-14.0) % Eos % (Auto) 4.6 (0.0-5.0) % Baso % (Auto) 1.6 (0.0-2.0) % Neut # (Auto) 10.10 H (1.40-7.00) K/uL Lymph # (Auto) 1.83 (0.50-3.50) K/uL [place] # (Auto) 0.82 (0.00-1.00) K/uL Eos # (Auto) 0.63 H (0.00-0.50) K/uL Baso # (Auto) 0.22 H (0.00-0.20) K/uL Sodium 140 (136-145) mmol/L Potassium 4.5 (3.5-5.1) mmol/L Chloride 105 (98-107) mmol/L Carbon Dioxide 26.7 (21.0-32.0) mmol/L BUN 14 (7-18) mg/dL Creatinine 1.02 (0.51-1.17) mg/dL Est Cr Clr Drug Dosing 45.24 mL/min Estimated GFR (MDRD) > 60 mL/min Glucose 112 H (74-106) mg/dL Calcium 9.0 (8.5-10.1) mg/dL Total Bilirubin 0.7 (0.2-1.0) mg/dL AST 39 H (15-37) U/L ALT 26 (12-78) U/L Alkaline Phosphatase 54 (46-116) IU/L C-Reactive Protein 1.4 H (<=0.9) mg/dL Total Protein 7.4 (6.4-8.2) g/dL Albumin 3.9 (3.4-5.0) g/dL MONICA Results - Last 24 hrs: Microbiology 03/29/17 17:36 Aerobic Blood Culture - Preliminary Blood - Venous - Lab Draw NO GROWTH AFTER 3 DAYS Anaerobic Blood Culture - Preliminary NO GROWTH AFTER 3 DAYS 03/29/17 17:05 Aerobic Blood Culture - Preliminary Blood - Venous NO GROWTH AFTER 3 DAYS Anaerobic Blood Culture - Preliminary NO GROWTH AFTER 3 DAYS 03/30/17 04:00 Urine Culture - Final Urine, Bladder NO GROWTH AFTER 2 DAYS Med Orders - Current: Current Medications Acetaminophen (Tylenol) 650 mg PO Q4H PRN PRN Reason: Pain (Mild 1-3)/fever Albuterol/Ipratropium (Duoneb 3.0-0.5 Mg/3 Ml) 3 ml NEB Q4H PRN PRN Reason: Shortness Of Breath/wheezing Albuterol/Ipratropium (Duoneb 3.0-0.5 Mg/3 Ml) 3 ml NEB QIDRT [facility] Last Admin: 04/02/17 08:10 Dose: 3 ml Donepezil HCl (Aricept) 10 mg PO DAILY [facility] Last Admin: 04/02/17 08:09 Dose: 10 mg Metronidazole 500 mg/ Premix 100 mls @ 100 mls/hr IV Q8H [facility] Last Admin: 04/02/17 08:11 Dose: 100 mls/hr Piperacillin Sod/Tazobactam (Sod 3.375 gm/ Sodium Chloride) 100 mls @ 200 mls/ hr IV Q6H [facility] Last Admin: 04/02/17 06:01 Dose: 200 mls/hr Levothyroxine Sodium (Synthroid) 88 mcg PO ACBREAKFAST [facility] Last Admin: 04/02/17 08:09 Dose: 88 mcg Meclizine HCl (Antivert) 12.5 mg PO DAILY [facility] Last Admin: 04/02/17 08:09 Dose: 12.5 mg Omeprazole (Omeprazole) 20 mg PO DAILY [facility] Last Admin: 04/02/17 08:10 Dose: 20 mg Sodium Chloride (Saline Flush) 10 ml FLUSH ASDIRECTED PRN PRN Reason: Keep Vein Open Last Admin: 04/02/17 06:01 Dose: 10 ml Sodium Chloride (Saline Flush) 10 ml FLUSH Q12HR [facility] Last Admin: 04/02/17 08:10 Dose: 10 ml Trospium (Sanctura) 20 mg PO BID [facility] Last Admin: 04/02/17 08:10 Dose: 20 mg Discontinued Medications Piperacillin Sod/Tazobactam (Sod 4.5 gm/ Sodium Chloride) 100 mls @ 200 mls/hr IV Q6H [facility] Last Admin: 03/30/17 11:14 Dose: 200 mls/hr Sodium Chloride (Saline Flush) 10 ml FLUSH ASDIRECTED PRN PRN Reason: Keep Vein Open - Exam Quality Assessment: Reports: DVT Prophylaxis General: Reports: Alert, Cooperative HEENT: Reports: Pupils Equal Neck: Reports: Supple Lungs: Reports: Normal Respiratory Effort, Decreased Breath Sounds Cardiovascular: Reports: Regular Rate, Regular Rhythm GI/Abdominal Exam: Normal Bowel Sounds, Soft, Non-Tender, No Organomegaly Extremities: Normal Inspection, Normal Range of Motion, Non-Tender, No Pedal Edema, Normal Capillary Refill Skin: Reports: Warm, Dry, Intact Neurological: Reports: Normal Speech Psy/Mental Status: Reports: Normal Affect, Normal Mood *Q Meaningful Use (DIS) - VTE *Q VTE Criteria *Q: - Stroke *Q Stroke Criteria *Q: - AMI *Q AMI Criteria *Q:
== END 2017-04-02 10:00 | DRG 190 ==
LOC: LL.DI 16:09 → LL.MS 16:31
PROVIDERS: ADMIT Nurse Practitioner Family; ATTEND Family Medicine
DX: J44.0 Chronic obstructive pulmonary disease with (acute) lower respiratory infection (principal); J18.9 Pneumonia, unspecified organism; J69.0 Pneumonitis due to inhalation of food and vomit; J44.1 Chronic obstructive pulmonary disease with (acute) exacerbation; G30.9 Alzheimer's disease, unspecified; F02.80 Dementia in other diseases classified elsewhere, unspecified severity, without behavioral disturbance, psychotic disturbance, mood disturbance, and anxiety; E03.9 Hypothyroidism, unspecified; K21.9 Gastro-esophageal reflux disease without esophagitis; Z66 Do not resuscitate; R32 Unspecified urinary incontinence
CPT/HCPCS: 36415; 71020; 80053; 81001; 82607; 82728; 82746; 83540; 83550; 85008; 85025; 86140; 87040; 87086; 92526-GN; 92610-GN; 94640; 94664; 97116-GP; 97161-GP; A9270-GY; J2543; J7050

== ENCOUNTER 2017-04-02 10:00 | Inpatient (IN) | payer MEDICARE, OTHER ==
[2017-04-02] MEDS ORDERED: Sodium Chloride 0.9% 10 ML Syringe FLUSH PRN (10:08)
[2017-04-02] MEDS ORDERED: Albuterol/Ipratropium 3.0-0.5 MG/3 ML Neb Soln NEB PRN (10:08)
[2017-04-02] MEDS ORDERED: Acetaminophen 325 MG Tab PO PRN (10:08)
--- NOTE | 2017-04-02 10:21 | PCM.HP ---
H&P History of Present Illness - General Date of Service: 04/02/17 Admit Problem/Dx: Admission Diagnosis/Problem Admission Diagnosis/Problem Pneumonia Source of Information: EMS Notes Reviewed - History of Present Illness Initial Comments - Free Text/Narative: Patient is transferred from inpatient to [facility] for further IV antibiotic treatment of pneumonia due to outpatient failure and patient's known Alzheimers - Related Data Allergies/Adverse Reactions: Allergies Allergy/AdvReac Type Severity Reaction Status Date / Time No Known Allergies Allergy Verified 03/21/17 13:30 Home Medications: Home Meds Donepezil HCl [Aricept] 10 mg PO DAILY 03/21/17 [History] Levothyroxine [Synthroid] 88 mcg PO ACBREAKFAST 03/21/17 [History] Meclizine [Antivert] 12.5 mg PO DAILY 03/21/17 [History] Omeprazole 20 mg PO DAILY 03/21/17 [History] Solifenacin [Vesicare] 5 mg PO DAILY 03/21/17 [History] Doxycycline [Vibramycin] 100 mg PO BID 03/29/17 [History] Past Medical History Gastrointestinal History: Reports: GERD Genitourinary History: Reports: Urinary Incontinence Neurological History: Reports: Alzheimers Disease Psychiatric History: Reports: Alzheimers Disease Endocrine/Metabolic History: Reports: Hypothyroidism Social & Family History - Family History Other Cardiac Family History: parents with heart disease - Tobacco Use Smoking Status *Q: Never Smoker Second Hand Smoke Exposure: No - Caffeine Use Caffeine Use: Reports: None - Recreational Drug Use Recreational Drug Use: No H&P Review of Systems - Review of Systems: Review Of Systems: See Below General: Reports: Weakness HEENT: Reports: No Symptoms Pulmonary: Reports: Cough Cardiovascular: Reports: No Symptoms Gastrointestinal: Reports: No Symptoms Genitourinary: Reports: Incontinence Musculoskeletal: Reports: No Symptoms Skin: Reports: No Symptoms Psychiatric: Reports: Confusion Neurological: Reports: Confusion Hematologic/Lymphatic: Reports: No Symptoms Immunologic: Reports: No Symptoms Exam - Exam Exam: See Below - Vital Signs Weight: 130 lb 12.8 oz - Exam Quality Assessment: DVT Prophylaxis General: Alert, Cooperative HEENT: Hearing Intact, Mucosa Moist & [place] Neck: Supple, Trachea Midline Lungs: Normal Respiratory Effort, Decreased Breath Sounds Cardiovascular: Regular Rate, Regular Rhythm GI/Abdominal Exam: Normal Bowel Sounds, Soft, Non-Tender, No Organomegaly, No Distention, No Abnormal Bruit Extremities: Normal Inspection, No Pedal Edema Peripheral Pulses: 1+: Dorsalis Pedis (L), Dorsalis Pedis (R) Skin: Warm, Dry, Intact Neuro Extensive - Mental Status: Alert, Normal Mood/Affect, Disorientation to Time Psychiatric: Alert, Normal Affect, Normal Mood *Q Meaningful Use (ADM) - VTE *Q VTE Criteria *Q: - Stroke *Q Stroke Criteria *Q: - AMI *Q AMI Criteria *Q: - Problem List (1) Pneumonia SNOMED Code(s): 481912287 ICD Code: J18.9 - PNEUMONIA, UNSPECIFIED ORGANISM Status: Acute Priority : High Current Visit: No Qualifiers: Pneumonia type: aspiration pneumonia (2) Alzheimer's dementia without behavioral disturbance SNOMED Code(s): 22380692 ICD Code: G30.9 - ALZHEIMER'S DISEASE, UNSPECIFIED; F02.80 - DEMENTIA IN OTH DISEASES CLASSD ELSWHR W/O BEHAVRL DISTURB Status: Acute Priority: Medium Current Visit: No Qualifiers: (3) COPD exacerbation SNOMED Code(s): 616820512, 831108686 ICD Code: J44.1 - CHRONIC OBSTRUCTIVE PULMONARY DISEASE W (ACUTE) EXACERBATION Status: Acute Priority: High Current Visit: No (4) Hypothyroidism SNOMED Code(s): 17303578 ICD Code: E03.9 - HYPOTHYROIDISM, UNSPECIFIED Status: Acute Priority: Low Current Visit: No Qualifiers: Problem List Initiated/Reviewed/Updated: Yes Orders Last 24hrs: Active Orders 24 hr Category Date Time Status Patient Status [ADT] Routine ADT 04/02/17 10:08 Active Ambulate [RC] ASDIRECTED Care 04/02/17 10:08 Active Antiembolic Devices [RC] PER UNIT ROUTINE Care 04/02/17 10:08 Active Antiembolic Devices [RC] PER UNIT ROUTINE Care 04/02/17 10:08 Active Intake and Output [RC] QSHIFT Care 04/02/17 10:08 Active Oxygen Therapy [RC] PRN Care 04/02/17 10:08 Active Oxygen Therapy [RC] PRN Care 04/02/17 10:08 Active Peripheral IV Care [RC] . DIRECTED Care 04/02/17 10:08 Active Pneumonia Education [RC] Click To Edit Care 04/02/17 10:08 Ordered RT Aerosol Therapy [RC] ASDIRECTED Care 04/02/17 10:08 Active RT Aerosol Therapy [RC] ASDIRECTED Care 04/02/17 10:08 Active RT Incentive Spirometry [RC] Q4HWA Care 04/02/17 10:08 Active Ready for Discharge [RC] PER UNIT ROUTINE Care 04/02/17 10:08 Ordered Up With Assistance [RC] ASDIRECTED Care 04/02/17 10:08 Active VTE/DVT Education [RC] PER UNIT ROUTINE Care 04/02/17 10:08 Active Vital Signs [RC] QID Care 04/02/17 10:08 Active Consult to Case Management [CONS] Routine Cons 04/02/17 10:08 Active GOLF BALL TRIMMER Evaluation and Treatment [CONS] Routine Cons 04/02/17 10:08 Active Regular Diet [DIET] Diet 04/02/17 Dinner Active Chest 2V [CR] Routine Exams 04/04/17 07:00 Ordered C-REACTIVE PROTEIN [CHEM] Routine Lab 04/04/17 05:11 Ordered CBC WITH AUTO DIFF [HEME] Routine Lab 04/04/17 05:11 Ordered COMPREHENSIVE METABOLIC PN,CMP [CHEM] Routine Lab 04/04/17 05:11 Ordered Acetaminophen [Tylenol] Med 04/02/17 10:08 Ordered 650 mg PO Q4H PRN Albuterol/Ipratropium [DuoNeb 3.0-0.5 MG/3 ML] Med 04/02/17 10:08 Ordered 3 ml NEB Q4H PRN Albuterol/Ipratropium [DuoNeb 3.0-0.5 MG/3 ML] Med 04/02/17 12:00 Ordered 3 ml NEB QIDRT Donepezil [Aricept] Med 04/03/17 08:00 Ordered 10 mg PO DAILY Levothyroxine [Synthroid] Med 04/03/17 07:30 Ordered 88 mcg PO ACBREAKFAST Meclizine [Antivert] Med 04/03/17 08:00 Ordered 12.5 mg PO DAILY Omeprazole Med 04/03/17 08:00 Ordered 20 mg PO DAILY Piperacillin/Tazobactam [Zosyn] 3.375 gm Med 04/02/17 11:00 Ordered Sodium Chloride 0.9% [Normal Saline] 100 ml IV Q6H Sodium Chloride 0.9% [Saline Flush] Med 04/02/17 10:08 Ordered 10 ml FLUSH ASDIRECTED PRN Sodium Chloride 0.9% [Saline Flush] Med 04/02/17 20:00 Ordered 10 ml FLUSH Q12HR Trospium [Sanctura] Med 04/02/17 18:00 Ordered 20 mg PO BID metroNIDAZOLE/Normal Saline [Flagyl 500 MG in NS 100 ML Med 04/02/17 17:00 Ordered ] 500 mg Premix Bag 1 bag IV Q8H Antiembolic Hose [OM.PC] Per Unit Routine Oth 04/02/17 10:08 Ordered Resuscitation Status Routine Resus Stat 04/02/17 10:13 Ordered Medication Orders Acetaminophen (Tylenol) 650 mg PO Q4H PRN PRN Reason: Pain (Mild 1-3)/fever Albuterol/Ipratropium (Duoneb 3.0-0.5 Mg/3 Ml) 3 ml NEB Q4H PRN PRN Reason: Shortness Of Breath/wheezing Albuterol/Ipratropium (Duoneb 3.0-0.5 Mg/3 Ml) 3 ml NEB QIDRT [facility] Donepezil HCl (Aricept) 10 mg PO DAILY [facility] Piperacillin Sod/Tazobactam (Sod 3.375 gm/ Sodium Chloride) 100 mls @ 200 mls/ hr IV Q6H [facility] Metronidazole 500 mg/ Premix 100 mls @ 100 mls/hr IV Q8H [facility] Levothyroxine Sodium (Synthroid) 88 mcg PO ACBREAKFAST [facility] Meclizine HCl (Antivert) 12.5 mg PO DAILY [facility] Omeprazole (Omeprazole) 20 mg PO DAILY [facility] Sodium Chloride (Saline Flush) 10 ml FLUSH ASDIRECTED PRN PRN Reason: Keep Vein Open Sodium Chloride (Saline Flush) 10 ml FLUSH Q12HR [facility] Trospium (Sanctura) 20 mg PO BID [facility] Assessment/Plan Comment:: 04/02/2017 Patient continued on IV Zosyn and Flagyl for pneumonia treatment. Recheck labs and Chest Xray on Tuesday. information technology program manager to discuss with family intermediate placement as patient is unable to return to [facility] due his decline in overall medical condition. Kathie Toth,CLOUD CONSULTANT
[2017-04-02] MEDS ORDERED: Piperacillin/Tazobactam 3.375 GM in Sodium Chloride 0.9% 100 ML IV SCH (11:00)
--- NOTE | 2017-04-02 11:17 | PCM.SN ---
- Free Text/Narrative Note: 04/02/2017 Daughter Marisol Calvin is here now, stating she is going to take Augusto today with here to [place]. POA papers reviewed from the [facility]. Marisol and Shin are the POA for Augusto. Daughter states that she is going to [facility] with the patient, staying at the [facility] and then going to [place] tomorrow. She has made arrangements for Augusto to go to a Adult Day Care Unit during the day while she is at work and then she will care for him at night. Long discussion held with the daughter in regards to Augusto's condition, need for skilled care, IV antibiotics, needing a video swallow, and further medical management. She does verbalizing understanding his needs and the risks of taking him back with her, she is adamant that she has arrangements made to care for the patient. Again, discussion was held with the daughter that Augusto needs continued medical treatment and skilled and there was a miscommunication in regards to his plan of care. Discussed with Dr Porter, patient will be discharged on oral Levaquin for 7 days, and flagyl for 7 days. Continue on current swingbed medications. Daughter will have the patient see a provider in [place] in the next week, also discussed that Augusto is a vulnerable adult needed 24 hour care. The daughter states she is willing to do this and has everything set up back in [place]. Kathie Toth,CHOKE REAMER
--- NOTE | 2017-04-02 11:30 | PCM.DCSUM1 ---
Discharge Summary - Hospital Course Free Text/Narrative:: Patient was admitted to [facility] for IV antibiotics, however the patient's daughter (medical POA) came stating she is taking Augusto back to her home in [place] today. Due to miscommunication, medical services were not aware of this and patient is was transferred to [facility] for the need of further antibiotic treatment. - Discharge Data Discharge Date: 04/02/17 Discharge Disposition: Home, Self-Care 01 Condition: Fair - Discharge Diagnosis/Problem(s) (1) Pneumonia SNOMED Code(s): 283470501 ICD Code: J18.9 - PNEUMONIA, UNSPECIFIED ORGANISM Status: Acute Priority : High Current Visit: No Qualifiers: Pneumonia type: aspiration pneumonia (2) Alzheimer's dementia without behavioral disturbance SNOMED Code(s): 67826319 ICD Code: G30.9 - ALZHEIMER'S DISEASE, UNSPECIFIED; F02.80 - DEMENTIA IN OTH DISEASES CLASSD ELSWHR W/O BEHAVRL DISTURB Status: Acute Priority: Medium Current Visit: No Qualifiers: (3) COPD exacerbation SNOMED Code(s): 738773054, 473237791 ICD Code: J44.1 - CHRONIC OBSTRUCTIVE PULMONARY DISEASE W (ACUTE) EXACERBATION Status: Acute Priority: High Current Visit: No (4) Hypothyroidism SNOMED Code(s): 34061612 ICD Code: E03.9 - HYPOTHYROIDISM, UNSPECIFIED Status: Acute Priority: Low Current Visit: No Qualifiers: - Patient Summary/Data Consults: Consultations 04/02/17 10:08 Consult to Case Management [CONS] Routine BLACK TOP MACHINE OPERATOR Evaluation and Treatment [CONS] Routine - Patient Instructions Diet: Regular Diet as Tolerated Driving: Do Not Drive Showering/Bathing: May Shower - Discharge Plan Prescriptions/Med Rec: Levofloxacin [Levaquin] 500 mg PO Q24H #7 tablet Metronidazole [IJD: metroNIDAZOLE] 500 mg PO .EVERY 8 HOURS #21 tab Home Medications: Home Meds Levothyroxine [Synthroid] 88 mcg PO ACBREAKFAST 03/21/17 [History] Meclizine [Antivert] 12.5 mg PO DAILY 03/21/17 [History] Omeprazole 20 mg PO DAILY 03/21/17 [History] Acetaminophen [Tylenol] 650 mg PO Q4H PRN #0 tablet 04/02/17 [Rx] Donepezil [Aricept] 10 mg PO DAILY tablet 04/02/17 [Rx] Levofloxacin [Levaquin] 500 mg PO Q24H #7 tablet 04/02/17 [Rx] Metronidazole [IJD: metroNIDAZOLE] 500 mg PO .EVERY 8 HOURS #21 tab 04/02/17 [Rx ] - Discharge Summary/Plan Comment DC Time >30 min.: No Discharge Summary/Plan Comment: Patient is discharged in the care of his daughter Marisol smith POA. Continue on antibiotics Levaquin and Flagyl for 7 days. Medical recommendations for the patient to remain in skilled care, but the daughter refuses this. - General Info Date of Service: 04/02/17 Admission Dx/Problem (Free Text: Admission Diagnosis/Problem Admission Diagnosis/Problem Pneumonia Functional Status: Reports: Pain Controlled - Review of Systems General: Reports: Weakness HEENT: Reports: No Symptoms Pulmonary: Reports: Cough Cardiovascular: Reports: No Symptoms Gastrointestinal: Reports: No Symptoms Genitourinary: Reports: Incontinence Musculoskeletal: Reports: No Symptoms Skin: Reports: No Symptoms Neurological: Reports: Confusion Psychiatric: Reports: Confusion - Patient Data Weight - Most Recent: 130 lb 12.8 oz Med Orders - Current: Current Medications Acetaminophen (Tylenol) 650 mg PO Q4H PRN PRN Reason: Pain (Mild 1-3)/fever Albuterol/Ipratropium (Duoneb 3.0-0.5 Mg/3 Ml) 3 ml NEB Q4H PRN PRN Reason: Shortness Of Breath/wheezing Albuterol/Ipratropium (Duoneb 3.0-0.5 Mg/3 Ml) 3 ml NEB QIDRT [facility] Donepezil HCl (Aricept) 10 mg PO DAILY [facility] Piperacillin Sod/Tazobactam (Sod 3.375 gm/ Sodium Chloride) 100 mls @ 200 mls/ hr IV Q6H [facility] Metronidazole 500 mg/ Premix 100 mls @ 100 mls/hr IV Q8H [facility] Levothyroxine Sodium (Synthroid) 88 mcg PO ACBREAKFAST [facility] Meclizine HCl (Antivert) 12.5 mg PO DAILY [facility] Omeprazole (Omeprazole) 20 mg PO DAILY [facility] Sodium Chloride (Saline Flush) 10 ml FLUSH ASDIRECTED PRN PRN Reason: Keep Vein Open Sodium Chloride (Saline Flush) 10 ml FLUSH Q12HR [facility] Trospium (Sanctura) 20 mg PO BID [facility] - Exam General: Reports: Alert, Cooperative Neck: Reports: Supple Lungs: Reports: Normal Respiratory Effort, Decreased Breath Sounds Cardiovascular: Reports: Regular Rate, Regular Rhythm GI/Abdominal Exam: Normal Bowel Sounds Extremities: Normal Inspection Skin: Reports: Warm, Dry, Intact Neurological: Reports: No New Focal Deficit Psy/Mental Status: Reports: Other (Alzheimers) *Q Meaningful Use (DIS) - VTE *Q VTE Criteria *Q: - Stroke *Q Stroke Criteria *Q: - AMI *Q AMI Criteria *Q:
[2017-04-02] MEDS ORDERED: Albuterol/Ipratropium 3.0-0.5 MG/3 ML Neb Soln NEB SCH (12:00)
[2017-04-02 13:15] VITALS: BP 119/67
[2017-04-02] MEDS ORDERED: metroNIDAZOLE/Normal Saline 500 MG in Premix Bag 1 BAG IV SCH (17:00)
[2017-04-02] MEDS ORDERED: Trospium 20 MG Tab PO SCH (18:00)
[2017-04-02] MEDS ORDERED: Sodium Chloride 0.9% 10 ML Syringe FLUSH SCH (20:00)
[2017-04-03] MEDS ORDERED: Levothyroxine 88 MCG Tab PO SCH (07:30)
[2017-04-03] MEDS ORDERED: Meclizine 25 MG Tab PO SCH (08:00)
[2017-04-03] MEDS ORDERED: Omeprazole 20 MG Cap.CR PO SCH (08:00)
[2017-04-03] MEDS ORDERED: Donepezil 10 MG Tab PO SCH (08:00)
== END 2017-04-02 16:30 | disposition home or self-care (01) | DRG 190 ==
LOC: LL.MS 10:00
PROVIDERS: ADMIT Family Medicine; ATTEND Family Medicine
DX: J44.0 Chronic obstructive pulmonary disease with (acute) lower respiratory infection (principal); J18.9 Pneumonia, unspecified organism; J44.1 Chronic obstructive pulmonary disease with (acute) exacerbation; G30.9 Alzheimer's disease, unspecified; F02.80 Dementia in other diseases classified elsewhere, unspecified severity, without behavioral disturbance, psychotic disturbance, mood disturbance, and anxiety; E03.9 Hypothyroidism, unspecified; K21.9 Gastro-esophageal reflux disease without esophagitis